=== PATIENT | female | born 1985 | race Caucasian/White ===

== ENCOUNTER 2018-03-06 03:37 | Inpatient (IN) | payer MEDICAID, OTHER ==
[~2018-03-06] VITALS: Ht 157.5 cm; Wt 98.9 kg
[2018-03-06 04:37] LABS: BASOPHILS % (AUTO) 0.4 % (0.0-2.0); EOSINOPHILS % (AUTO) 2.5 % (1.0-6.0); HEMATOCRIT 37.1 % (36-46); HEMOGLOBIN 12.2 g/dL (12.0-16.0); LYMPHOCYTES # (AUTO) 1.8 K/uL (1.0-4.8); LYMPHOCYTES % (AUTO) 21.4 % (22.0-44.0); MEAN CORPUSCULAR HEMOGLOBIN 26.6 pg (26.0-34.0); MEAN CORPUSCULAR HGB CONC 32.9 G/dL (31.0-37.0); MEAN CORPUSCULAR VOLUME 81 fL (80-100); MONOCYTES # (AUTO) 0.7 K/uL (0.1-1.0); MONOCYTES % (AUTO) 7.6 % (2.0-9.0); NEUTROPHILS # (AUTO) 5.8 K/uL (1.8-7.7); NEUTROPHILS % (AUTO) 68.1 % (40.0-70.0); PLATELET COUNT (AUTO) 253 K/uL (150-450); RED BLOOD CELL COUNT(AUTO) 4.58 MIL/uL (4.00-5.20); RED CELL DISTRIBUTION WIDTH 15.9 % (11.5-14.5)
[2018-03-06 04:46] LABS: ANION GAP 8 mmol/L (8-16); CALCIUM, TOTAL 8.7 mg/dL (8.8-10.5); CARBON DIOXIDE 28 mmol/L (22-29); CHLORIDE 105 mmol/L (98-107); CREATININE 0.84 mg/dL (0.60-1.30); GLOMERULAR FILTR. RATE CALC > 60 mL/min (>60); GLUCOSE,RANDOM 105 mg/dL (70-110); POTASSIUM 3.9 mmol/L (3.5-5.1); SODIUM SERUM 141 mmol/L (136-145); UREA NITROGEN, BLOOD 13 mg/dL (7-18)
[2018-03-06 04:53] LABS: ALANINE AMINOTRANSFERASE 83 U/L (12-78); ALBUMIN 3.6 g/dL (3.4-5.0); ALKALINE PHOSPHATASE 74 U/L (46-116); ASPARTATE AMINOTRANSFERASE 38 U/L (15-37); BILIRUBIN,TOTAL 0.3 mg/dL (0.1-1.0); TOTAL PROTEIN, SERUM 7.9 g/dL (6.4-8.2)
[2018-03-06] MEDS ORDERED: ZOLPIDEM TARTRATE 10 MG TABLET PO PRN (05:30)
[2018-03-06] MEDS ORDERED: LORazepam 2 MG TABLET PO PRN (05:30)
[2018-03-06] MEDS ORDERED: HALOPERIDOL 5 MG TABLET PO PRN (05:30)
[2018-03-06 10:10] VITALS: BP 124/68
[2018-03-06] MEDS ORDERED: BUPR-47 PO (10:40)
[2018-03-06] MEDS ORDERED: METF-960 PO (10:40)
[2018-03-06] MEDS ORDERED: SERT50TA12 PO (10:40)
[2018-03-06] MEDS ORDERED: CLOT12CR TP (10:40)
[2018-03-06] MEDS ORDERED: DEXTROSE 50%-WATER 25 GM/50 ML SYRINGE IVP PRN (11:15)
[2018-03-06] MEDS ORDERED: INSULIN LISPRO 100 UNITS/ML SQ PRN (11:15)
[2018-03-06] MEDS: PRENATAL VIT#96/FERROUS FUM/FA TABLET PO SCH (11:15)
[2018-03-06] MEDS ORDERED: MetFORMIN HCL 500 MG TABLET PO SCH (17:30)
[2018-03-06 17:34] LABS: GLUCOMETER DEV NAME(LOC) 3EI C; GLUCOSE,POINT OF CARE 73 MG/DL (70-110)
[2018-03-06 22:06] VITALS: BP 126/68
[2018-03-07 01:24] VITALS: BP 126/69
[2018-03-07 07:04] LABS: CHOL/HDL RATIO 4.3 (3.9-5.7)
[2018-03-07 08:11] VITALS: BP 137/67
[2018-03-07] MEDS: PRENATAL VIT#96/FERROUS FUM/FA TABLET PO SCH (09:10)
== END 2018-03-07 19:00 | disposition home or self-care (01) | DRG 754 ==
LOC: EMS 03:37 → AHU 07:00 → 3EC 07:01 → 3EI 10:58
PROVIDERS: ADMIT Psychiatry & Neurology Psychiatry; ATTEND Psychiatry & Neurology Psychiatry
DX: F32.9 Major depressive disorder, single episode, unspecified (principal); R45.851 Suicidal ideations; F41.9 Anxiety disorder, unspecified; E66.9 Obesity, unspecified; R79.89 Other specified abnormal findings of blood chemistry; Z83.3 Family history of diabetes mellitus; Z86.32 Personal history of gestational diabetes; Z68.39 Body mass index [BMI] 39.0-39.9, adult; Z98.891 History of uterine scar from previous surgery; Z90.49 Acquired absence of other specified parts of digestive tract; Z88.8 Allergy status to other drugs, medicaments and biological substances
CPT/HCPCS: 83036; 99285; G0480